=== PATIENT | female | born 1940 | race Caucasian/White ===

== ENCOUNTER 2021-10-06 00:45 | Emergency (ER) | payer MEDICARE, MEDICAID ==
[~2021-10-06] VITALS: Ht 152.4 cm; Wt 68.2 kg
[2021-10-06] MEDS ORDERED: GLUCAGON,HUMAN RECOMBINANT 1 MG/ML VIAL. IM ONE (01:30)
[2021-10-06] MEDS ORDERED: GLUCAGON,HUMAN RECOMBINANT 1 MG/ML VIAL. ONE (01:39)
[2021-10-06 03:17] VITALS: BP 160/76
--- NOTE | 2021-10-06 03:47 | PHYS DOC ---
Past Medical History Additional Past Medical Histor: sepsis Past Surgical History: Hysterectomy Additional Past Surgical Histo: lung CA with radiation Smoking Status: Former Smoker Alcohol Use: None General Adult EDM: Chief Complaint: DIFFICULTY SWALLOWING HPI: HPI: Patient is a 81 year old female who presents with an esophageal foreign body sensation after swallowing chicken at approximately 11 PM. Patient states that she swallowed it and it felt like it did not completely go down. Has a sense of fullness in her upper chest. When she drinks water she feels like she has to spit it right back up. She has been able to handle her secretions. States that this sensation has happened before, but usually goes away quickly after drinking a few glasses of water. Does not recall having an upper endoscopy. No blood thinners. Takes a daily baby aspirin. Review of Systems: Review of Systems: Constitutional: Denies fever or chills. [] HENT: Denies nasal congestion or sore throat. [] Respiratory: Denies cough or shortness of breath. [] Cardiovascular: Denies chest pain or edema. [] GI: Reports difficulty swallowing and esophageal globus sensation Psychiatric: Denies depression or anxiety. [] Heart Score: C/O Chest Pain: No Current Medications: Current Medications Medications (Trade) Dose Ordered Sig/Iliana Start Time Stop Time Status Last Admin Dose Admin Glucagon (Glucagen) 1 mg 1X ONCE 10/06/21 01:30 10/06/21 03:04 DC 10/06/21 01:45 1 MG Allergies: Allergies: Allergies Coded Allergies Type Severity Reaction Last Updated Verified No Known Drug Allergies 10/06/21 No Physical Exam: PE: Constitutional: Well developed, well nourished. When asked to swallow seems like she has slight discomfort, but was ultimately able to tolerate small sips of water without regurgitation. HENT: Normocephalic, atraumatic Neck: Normal range of motion, no tenderness, supple, no stridor. [] Cardiovascular:Heart rate regular rhythm, no murmur [] Lungs & Thorax: Bilateral breath sounds clear to auscultation [] Abdomen: Bowel sounds normal, soft, no tenderness, no masses, no pulsatile masses. [] Skin: Warm, dry, no erythema, no rash. [] Extremities: No tenderness, no cyanosis, no clubbing, ROM intact, no edema. [] Neurologic: Alert and oriented X 3, normal motor function, normal sensory function, no focal deficits noted. [] Psychologic: Affect normal, judgement normal, mood normal. [] Current Patient Data: Vital Signs: Vital Signs Date Time Temp Pulse Resp B/P (MAP) Pulse Ox O2 Delivery O2 Flow Rate FiO2 10/06/21 02:30 79 18 165/86 (112) 92 Room Air 10/06/21 01:10 98.3 98.3 EKG: EKG: [] Radiology/Procedures: Radiology/Procedures: [] Course & Med Decision Making: Course & Med Decision Making Pertinent Labs and Imaging studies reviewed. (See chart for details) Patient is 81-year-old female who presents with signs/symptoms of esophageal food impaction. On arrival is able to tolerate small amounts of water without regurgitation and is handling secretions well. More consistent with a partial esophageal impaction or recent passage of an esophageal impaction. Patient did report persistent symptoms and difficulty swallowing, so IM glucagon was administered. Within the next hour the patient reported resolution of symptoms. Is now tolerating p.o. intake well. Will be provided with a GI referral for consideration of endoscopy with concern for esophageal stricture, mass, or other anatomic cause of her symptoms today. Dragon Disclaimer: [employer] Disclaimer: This electronic medical record was generated, in whole or in part, using a voice recognition dictation system. Departure Departure Impression: Primary Impression: Food impaction of esophagus Disposition: 01 HOME / SELF CARE / HOMELESS Condition: STABLE Referrals: UNKNOWN PCP NAME (PCP) PATRICK PEDERSEN MD Schedule appointment with Dr. Pedersen's office to consider a procedure to look at your esophagus. Additional Instructions: I think you may have had food stuck in your esophagus earlier today. Fortunately this passed on its own. Sometimes things like strictures or masses in the esophagus can cause the symptoms. I would advise that you follow-up with the GI specialist to look into this further. Please call the office number for Dr. Pedersen. If you have return of symptoms that are not self resolving you can return to the emergency department anytime for reevaluation. Consider eating softer foods and chewing very well to prevent recurrence. ROE CURRIE MD Oct 06, 2021 03:47
== END 2021-10-06 04:20 | disposition home or self-care (01) ==
LOC: ER 00:45
DX: T18.120A Food in esophagus causing compression of trachea, initial encounter (principal); Z87.891 Personal history of nicotine dependence; X58.XXXA Exposure to other specified factors, initial encounter; Y93.89 Activity, other specified; Y92.89 Other specified places as the place of occurrence of the external cause; Y99.8 Other external cause status
CPT/HCPCS: 96372; 99285; J1610

== ENCOUNTER → 2021-12-10 | Outpatient (CLI) | payer MEDICARE, MEDICAID ==
[2021-10-17 12:24] VITALS: BP 142/60
[~2021-12-10] MED LIST: AMOX1TAB61 PO; ASPI-630 PO; ATOR40TA PO; CARV25TA PO; FERR-36 PO; FURO-68 PO; HYDR12.575 PO; LISI5TAB15 PO; METF750T39 PO; MULT-245 PO; OMEG1CAP27 PO; POLY17PO29 PO; REGADENOSON 0.4 MG/5 ML DISP.SYRIN. IV ONE; SENN8.8S13 PO; TRAZ-118 PO; UMEC1DIS IH
--- NOTE | 2021-12-11 11:22 | RAD ---
MR#: [id number] Date of Study: 12/10/2021 Ordering Physician: JEREMI MENA, Referring Physician: GREG VEGA Tech: HAILE Tate ARRT (R) (N) APPROVED REPORT Test Type: Pharmacological Stress Nurse/Tech: LUANA COLEMAN Test Indications: DYSPNEA ON EXERTION Cardiac History: HTN, HLD- SEE EMR Medications: SEE EMR Medical History: SEE EMR Resting Heart Rate: 62 bpm Resting Blood Pressure: 138/57mmHg Pretest Chest Pain: No chest pain Nurse/Tech Notes S1,S2, LUNGS DIMINISHED, O2 @ 2L PER NC, VSS, DENIED CHEST PAIN. Consent: The procedure was explained to the patient in lay terms. Informed consent was witnessed. Maurisio eout was entered into [employer]. History and Stress Test performed by RT Caitlyn (R) (N) Pharm. Details Pharmacologic stress testing was performed using 0.4mg per 5ml of regadenoson given intravenously ove r 7-10 seconds. Stress Symptoms PT HAD A BRIEF EPISODE OF INCREASED SHORTNESS OF BREATH DURING INITIAL TESTING, VSS, DENIED CHEST FARSHAD N. POST EXERCISE Reason for Termination: Infusion complete Max HR: 82 bpm Max Blood Pressure: 140/41mmHg Blood Pressure response to exercise: Normal blood pressure response during stress. Heart Rate response to exercise: WNL Chest Pain: No. Arrhythmia: . NO SIGNIFICANT CHANGES NOTED FROM BASELINE EKG INTERPRETATION Stress EKG Conclusion: The resting EKG shows a sinus rhythm with mild T wave inversion. The stress EKG shows no significant changes from baseline. Abnormal EKG but no EKG evidence of stress-induced ischemia. Imaging Protocol IMAGE PROTOCOL: Rest Tc-99m/stress Tc-99m 1 day Rest: Stress: Viability: Radiopharm.Tc99m [id number] Sestamibi Dose10.3mCi 32mCi Img Date 12/10/2021 12/10/2021 Inj-Img [id number]. 60min. Rest Admin Site:IV - Right ForearmAdministrator:HAILE Tate ARRT (R)(N) Stress Admin Site: IV - Right ForearmAdministrator: Skyla Garces, RT (R)(N) STRESS DATA End Diast. Vol.68.0mlAv. Heart Rate84.0bpm End Syst. Vol.11.0mlCO Index BSA0.0L/min Myocardial Gjsy704.0gEject. Qkciapiq04.0% Stress Rates Pk. Fill Rate4.69EDV/secLVtime Pk. Fill 198.68msec Pk. Empty Rate5.57ESV/secLVtime Pk. Nqixv223.44msec 09/23 Pk. Fill1.20EDV/sec Stress Scores Regional WT0.00Summed WT6.00 Regional WM0.00Summed WM1.00 LV Perfusion The stress scans showed no significant defects. The rest scans showed no significant defects. Nuclear imaging shows no reversible ischemia or infarct. Wall Motion Left ventricular systolic function is intact with an ejection fraction of greater than 75%. LV Perf. Quant 17 Seg. SSS0.00 17 Seg. SRS5.00 17 Seg. SDS0.00 Stress Defect Extent (% LAD)0.00Rest Defect Extent (% LAD)0.00Rev. Defect Extent (% LAD)0.00 Stress Defect Extent (% LCX) 10.00Rest Defect Extent (% LCX)41.30Rev. Defect Extent (% LCX)0.00 Stress Defect Extent (% RCA)0.00Rest Defect Extent (% RCA)0.00Rev. Defect Extent (% RCA)0.00 Stress Defect Extent (% ALEX)1.70Rest Defect Extent (% ALEX)8.30Rev. Defect Extent (% ALEX)0.00 Conclusion 1. Mildly abnormal EKG but no EKG evidence of stress-induced ischemia. 2. Nuclear imaging shows no reversible ischemia or infarct. 3. Intact LV systolic function with an ejection fraction of greater than 75%. 4. Moderately low risk Lexiscan nuclear stress test. Signed by : Jeremi Mena MD Electronically Approved : 12/11/2021 11:22:19
== END ==
LOC: NM 09:04
PROVIDERS: ATTEND Internal Medicine Cardiovascular Disease
DX: R94.31 Abnormal electrocardiogram [ECG] [EKG] (principal); R06.00 Dyspnea, unspecified
CPT/HCPCS: 78452; 93017; A9500; J2785